=== PATIENT | female | born 1980 ===

== ENCOUNTER 2017-05-24 06:02 | Inpatient (IN) ==
[2017-05-24] MEDS ORDERED: LACTATED RINGERS 1,000 ML IV SCH (06:30)
[2017-05-24] MEDS ORDERED: MEPERIDINE 50 MG/1 ML VIAL IV PRN (07:04)
[2017-05-24] MEDS ORDERED: ONDANSETRON 4 MG/2 ML VIAL IV PRN (07:04)
[2017-05-24] MEDS ORDERED: AMPICILLIN INJ 2,000 MG in SODIUM CHLORIDE 0.9% 100 ML IV ONE (07:05)
[2017-05-24 07:24] LABS: Basophils % 0.5 % (0.0-0.8); Eosinophils % 0.6 % (0.00-10.9); Hematocrit 33.5 VOL% (35.7-47.0); Hemoglobin 11.4 GM/DL (12.0-16.0); Immature Granulocytes % 0.2 %; Immature Granulocytes Absolute 0.01 #; Lymphocytes # 1.7 10*3/uL (1.4-4.0); Lymphocytes % 27.1 % (21.3-54.2); Mean Corpuscular Hemoglobin 30 PG (27-34); Mean Corpuscular Volume 86.6 FL (87-102); Mean Platelet Volume 9.3 FL (9.6-12.0); Monocytes # 0.5 10*3/uL (0.11-0.8); Monocytes % 7.4 % (1.7-12.7); Neutrophils % 64.2 % (38.7-73.9); Platelet Count 259 T/CUMM (130-400); Red Blood Count 3.87 MC/CUMM (3.8-5.5); Red Cell Distribution Width 12.8 % (9.3-17.3); White Blood Count 6.2 T/CUMM (4-12)
[2017-05-24] MEDS ORDERED: OXYTOCIN/LR 20 UNIT/1,000 ML BAG IV SCH (07:30)
--- NOTE | 2017-05-24 07:51 | Ultrasound Report ---
OB ultrasound limited. Indication: Evaluate position. No previous studies. There is a single intrauterine gestation in a cephalic presentation. The placenta is located posterior. The amniotic fluid volume is normal with an CLAUDY of 10.9 cm. Cardiac activity is seen at real-time with a rate of 139 beats per minute. PROCEDURE INTERPRETED AT [facility] DEPARTMENT OF RADIOLOGY Final Report Signed by: Dr. Kerry Navarro
[2017-05-24 08:01] LABS: Alanine Aminotransferase 9 U/L (13-56); Albumin 2.6 G/DL (3.4-5.0); Alkaline Phosphatase 121 U/L (45-117); Aspartate Amino Transferase 12 U/L (0-37); Bilirubin,Total < 0.39 MG/DL (0.2-1.0); Blood Urea Nitrogen 11 MG/DL (7-18); Calcium 8.4 MG/DL (8.5-10.1); Glucose 81 MG/DL (74-106); Osmolality,Calculated 274.5 MOS/KG (273-304); Potassium 3.9 MMOL/L (3.5-5.1); Sodium 139 MMOL/L (136-145); Total Protein 6.3 G/DL (6.4-8.3)
[2017-05-24 08:27] LABS: Rubella Antibody IgG 15.7 IU/ML
[2017-05-24 08:49] LABS: HIV Antigen/Antibody Result Nonreactive (Nonreactive); Hepatitis B Surface Ag Quant 0.25 Index; Hepatitis B Surface Ag Result Negative (Negative)
--- NOTE | 2017-05-24 09:24 | OB/GYN History & Physical ---
History of Present Illness Chief complaint: In for elective induction of labor due to term History of present illness: Ms. Allen is a 36 year old female MIGUEL 05/29/2017 for an estimated maybe gestational age of 39 weeks and 2 days. The patient presents for elective induction of labor due to term . The risks and benefits of been thoroughly discussed with this patient and significant other, plan of care has been discussed with Dr. Rivers and all parties are in agreement plan. The patient received her care through the [facility] in the [place] [facility] and she received routine care and her course was uneventful. The patient has had 6 previous vaginal deliveries and the largest infant weighed 7 pounds and 2 ounces, she reported no comp occasions with any of her pregnancies. labs: She is O+, RPR is nonreactive, rubella is immune, hepatitis B negative, HIV negative, GBS culture negative. Review of systems is negative with exception of above. 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: Vital Signs Temp Pulse Resp BP 05/24/17 08:00 98.5 F 75 20 147/91 General appearance: no acute distress - Antepartum / Post Antepartum Exam Cervix - Dilatation: 4 cm Effacement: 60% Station: -2 Rupture: Intact Presentation: Vertex Heart Rate: 130s-140s Breast: bilateral: normal Abdomen obstetrics: Present: bowel sounds normal Vagina: Present: normal moisture Uterus exam: Present: enlarged Anus/Rectum: Present: normal perianal skin - Respiratory Respiratory exam: Present: clear to auscultation bilaterally - Cardiovascular Cardiovascular exam: Present: regular rate and rhythm - GI/Abdominal GI/Abdominal exam: Present: normal bowel sounds, soft - Extremities Exam Extremities exam: Present: normal inspection - Neurological Exam Neurological exam: Present: alert, oriented X3 - Psychiatric Psychiatric exam: Present: normal affect, normal mood - Skin Skin exam: Present: normal color, warm Assessment and Plan (1) Term Status: Acute Assessment and plan: Admit IV fluids IV Pitocin per protocol Artificial rupture membranes when appropriate Internal monitors if indicated Epidural anesthesia if desired Anticipate Current Visit: Yes Results - Labs CBC & BMP: 05/24/17 07:17 05/24/17 07:17
[2017-05-24] MEDS ORDERED: AMPICILLIN INJ 1,000 MG in SODIUM CHLORIDE 0.9% 100 ML IV SCH (12:00)
[2017-05-24] MEDS ORDERED: LACTATED RINGERS 1,000 ML IV ONE (17:16)
[2017-05-24] MEDS ORDERED: FAMOTIDINE 20 MG/2 ML VIAL IV ONE (17:16)
[2017-05-24] MEDS ORDERED: PROMETHAZINE 25 MG/1 ML VIAL IM ONE (17:16)
[2017-05-24] MEDS ORDERED: diphenhydrAMINE 50 MG/1 ML VIAL IV PRN ×2 (17:16)
[2017-05-24] MEDS ORDERED: ONDANSETRON 4 MG/2 ML VIAL IV ONE (17:16)
[2017-05-24] MEDS ORDERED: hydrOXYzine HCL 25 MG/1 ML VIAL IM PRN (17:16)
[2017-05-24] MEDS ORDERED: ePHEDrine 50 MG/ML AMP IV PRN (17:16)
[2017-05-24] MEDS ORDERED: CITRIC ACID/SODIUM CITRATE 30 ML UDCUP PO ONE (17:16)
[2017-05-24 17:41] LABS: Cord Arterial Blood HCO3 24.8 MMOL/L
[2017-05-24 17:44] LABS: Cord Venous Blood HCO3 20.9 MMOL/L; Cord Venous Blood PO2 23.5 MMHG
--- NOTE | 2017-05-24 17:57 | Event Note ---
HPI: Ms. Allen is a 36-year-old female who presented for elective induction of labor due to term . The risk and benefits were thoroughly discussed this patient and significant other, plan of care discussed with Dr. Rivers and all parties in agreement plan. Stage I: The patient was admitted she received IV fluids and IV Pitocin per protocol. Artificial rupture membranes was performed with clear fluid noted. The patient progressed in labor with a CAT 1 tracing. When she was approximately a centimeters dilated she started pushing and screaming and becoming out of control. The patient was encouraged to try and relax and breathe with her contractions; however, she continued to experience episodes of intense moments but screaming and uncontrollable gestures. Stage II: The patient was complete and complained of pressure and strong desire to push. She was coming off the bed, she was going to the top of the bed, efforts to control the patient by myself and the nurse were were ineffective. Several times the patient came literally off the bed screaming. We continued to offer encouragement to try and get the patient to get under control. Eventually when she felt more pressure she became a little more relaxed. At the point that the head was the patient started screaming uncontrollably again and with the baby's head almost all the way out she went to the top of the bed again. I encouraged the patient to push and to try and maintain control. When she pushed the final time the infant's head was delivered in the mouth and nose suctioned out on the perineum, the remainder of the infant was delivered at 1719. A viable male was noted. Apgars were 8 at 1 minute and 9 at 5 minutes. weight was 8 pounds and 2 ounces. A cord pH was obtained and sent to the lab. The was placed on the mom's abdomen for skin to skin bonding. Stage III: Spontaneous delivery of a [place] placenta with a three-vessel cord noted. The placenta was further examined appeared to be grossly intact. The vagina cervix inspected with no tears or lacerations noted. Estimated blood loss was approximately 150 cc. At the time of dictation mother and baby are both in stable condition.
[2017-05-24] MEDS ORDERED: BISACODYL 10 MG SUPP RECTAL PRN (19:41)
[2017-05-24] MEDS ORDERED: MEASLES/MUMPS/RUBELLA VACCINE 0.5 ML VIAL SUBCUT ONE (19:41)
[2017-05-24] MEDS ORDERED: WITCH HAZEL PADS 100/JAR TOP PRN (19:41)
[2017-05-24] MEDS ORDERED: HYDROCORTISONE 2.5% RECTAL CREAM 30 GM TUBE TOP PRN (19:41)
[2017-05-24] MEDS ORDERED: RHO(D) IMMUNE GLOBULIN 300 MCG SYRINGE IM ONE (19:41)
[2017-05-24] MEDS ORDERED: DIPH/TET/ACEL PERT BOOSTER VACCINE 0.5 ML VIAL IM ONE (19:41)
[2017-05-24] MEDS ORDERED: BENZOCAINE 20%/MENTHOL 0.5% SPRAY 56 GM CAN TOP PRN (19:41)
[2017-05-24] MEDS ORDERED: oxyCODONE/ACETAMINOPHEN 5-325 MG TABLET PO PRN ×2 (19:41)
[2017-05-24] MEDS ORDERED: ACETAMINOPHEN 325 MG TABLET PO PRN (19:41)
[2017-05-24] MEDS ORDERED: LANOLIN 50% CREAM 0.3 OZ TUBE TOP PRN (19:41)
[2017-05-24] MEDS ORDERED: IBUPROFEN 800 MG TABLET PO PRN (19:41)
[2017-05-24] MEDS ORDERED: OXYTOCIN/LR 20 UNIT/1,000 ML BAG IV ONE (19:44)
[2017-05-24] MEDS: ACETAMINOPHEN/CODEINE 300-30 MG TABLET PO PRN (19:47)
[2017-05-25] MEDS: DOCUSATE SODIUM 100 MG CAPSULE PO SCH ×3 (03:12→21:30)
[2017-05-25 09:37] LABS: Basophils % 0.2 % (0.0-0.8); Eosinophils % 0.3 % (0.00-10.9); Hematocrit 29.9 VOL% (35.7-47.0); Hemoglobin 10.1 GM/DL (12.0-16.0); Immature Granulocytes % 0.5 %; Immature Granulocytes Absolute 0.06 #; Lymphocytes % 16.4 % (21.3-54.2); Mean Corpuscular HGB Conc 33.8 GM/DL (32-36); Mean Corpuscular Hemoglobin 29 PG (27-34); Mean Corpuscular Volume 86.9 FL (87-102); Mean Platelet Volume 9.3 FL (9.6-12.0); Monocytes # 0.8 10*3/uL (0.11-0.8); Monocytes % 6.3 % (1.7-12.7); Neutrophils # 9.1 10*3/uL (1.4-7.4); Neutrophils % 76.3 % (38.7-73.9); Platelet Count 219 T/CUMM (130-400); Red Blood Count 3.44 MC/CUMM (3.8-5.5); Red Cell Distribution Width 12.8 % (9.3-17.3); White Blood Count 11.9 T/CUMM (4-12)
[2017-05-26] MEDS: ACETAMINOPHEN/CODEINE 300-30 MG TABLET PO PRN ×2 (01:50→01:54)
[2017-05-26 07:44] VITALS: BP 109/61
--- NOTE | 2017-05-26 09:09 | Discharge Summary ---
Hospital Course - Hospital Course Hospital Course: Ms. Allen presented to the labor department for elective induction of labor due to term . The patient subsequently delivered a viable infant with no complications. She has followed a normal course and she has done well. Her bleeding is minimal with no odor. Her vital signs and lab values are stable. She is bonding well with her infant. She desires a bilateral tubal ligation for contraception. She is bonding well with her . She will be discharged home prescriptions for pain and follow-up appointment in our office. Diagnosis - Discharge Diagnosis (1) Term Status: Acute Specialty Discharge - Follow Up or Referrals Follow up with: James Rivers MD [Physician] - (Follow-up in 4 weeks for bilateral tubal ligation) Discharge Plan - Discharge Medications New Ibuprofen Tab [Motrin Tab] 800 mg PO Q6H PRN #30 tablet PRN Reason: Pain Moderate (4-7) Acetamin/Codeine 300-30 Tab [Tylenol/Codeine #3] 2 tablet PO Q4H PRN #30 tablet PRN Reason: Pain Mild (1-3) - Follow Up or Referral - Forms/Instructions Exam - Constitutional Vitals: Period Temp Pulse Resp BP Sys/Golden Pulse Ox Last 24 Hr 97.0 F-98.6 F 63-84 18-20 102-141/60-95 97-98 General appearance: no acute distress - Respiratory Respiratory exam: Present: clear to auscultation bilaterally - Cardiovascular Cardiovascular exam: Present: regular rate and rhythm - GI/Abdominal GI/Abdominal exam: Present: normal bowel sounds, soft - Extremities Exam Extremities exam: Present: normal inspection - Neurological Exam Neurological exam: Present: alert, oriented X3 - Psychiatric Psychiatric exam: Present: normal affect, normal mood - Skin Skin exam: Present: normal color, warm Discharge Results Labs on day of discharge: Labs from last 24 hours 05/25/17 09:30 WBC 11.9 D RBC 3.44 L Hgb 10.1 L Hct 29.9 L MCV 86.9 L MCH 29 MCHC 33.8 RDW 12.8 Plt Count 219 MPV 9.3 L Neut % (Auto) 76.3 H Lymph % (Auto) 16.4 L [place] % (Auto) 6.3 Eos % (Auto) 0.3 Baso % (Auto) 0.2 Neut # (Auto) 9.1 H Lymph # (Auto) 2.0 [place] # (Auto) 0.8 Eos # (Auto) 0.0 Baso # (Auto) 0.0 Immature Gran % 0.5 Nucleated RBC % 0.0 Immature Gran # 0.06 Nucleated RBCs # 0.00 Immature Plt Fraction 0.0 DS: Provider Date of admission: 05/24/17 06:28 Primary care physician: Leonardo Vora MD Attending physician on admission: James Rivers MD Consults: 05/24/17 06:28 Consult to Anesthesiology [CONS] Routine Consulting Provider: Reason for Anesthesiology: Epidural Consult Comment: Epidural for pain managment 05/24/17 19:41 Consult to Wharf Attendant [CONS] Routine Consult Wharf Attendant: Breast Feeding Discharging clinician: Sonja Moore CNM Expected date of discharge: 05/26/17
[2017-05-26] MEDS: DOCUSATE SODIUM 100 MG CAPSULE PO SCH (09:10)
--- NOTE | 2017-05-26 09:37 | OB/GYN Progress Note ---
Assessment and Plan (1) Term Status: Acute Assessment and plan: Admit IV fluids IV Pitocin per protocol Artificial rupture membranes when appropriate Internal monitors if indicated Epidural anesthesia if desired Anticipate Current Visit: Yes (2) Vaginal delivery Status: Acute Assessment and plan: Routine orders. 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 Bonding well with . Exam MANAGER DEVELOPMENT - Constitutional Vitals: Vital Signs Temp Pulse Resp BP Pulse Ox 05/26/17 07:43 98 F 67 20 109/61 97 05/26/17 04:00 97.6 F 70 20 130/83 98 05/26/17 00:00 97.9 F 69 20 141/95 98 05/25/17 20:00 98.6 F 63 19 102/60 97 05/25/17 15:57 97.5 F L 64 20 120/67 98 05/25/17 14:00 18 05/25/17 12:00 97.0 F L 84 20 113/79 98 05/25/17 10:00 18 General appearance: no acute distress - Antepartum / Post Post Exam Breast: bilateral: normal Abdomen obstetrics: Present: bowel sounds normal Vagina: Present: normal moisture, discharge (Light lochia rubra) Uterus exam: Present: enlarged (Fundus firm and midline) Anus/Rectum: Present: normal perianal skin - Respiratory Respiratory exam: Present: clear to auscultation bilaterally - Cardiovascular Cardiovascular exam: Present: regular rate and rhythm - GI/Abdominal GI/Abdominal exam: Present: normal bowel sounds, soft - Extremities Exam Extremities exam: Present: normal inspection - Neurological Exam Neurological exam: Present: alert, oriented X3 - Psychiatric Psychiatric exam: Present: normal affect, normal mood - Skin Skin exam: Present: normal color, warm Results - Labs CBC & BMP: 05/25/17 09:30 05/24/17 07:17
== END 2017-05-26 10:15 | disposition home or self-care (01) | DRG 560 ==
LOC: N.LDOUT 06:02 → N.LD 06:08 → N.OB 22:49
PROVIDERS: ADMIT Obstetrics & Gynecology; ATTEND Obstetrics & Gynecology